=== PATIENT | male | born 1965 | race Caucasian/White ===

== ENCOUNTER 2020-07-01 12:43 | Emergency (ER) | payer SELFPAY ==
[2020-07-01] MEDS ORDERED: IBUPROFEN 600 MG TABLET. PO ONE (13:15)
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
[2020-07-01] MEDS ORDERED: ORPH-16 PO (13:48)
== END 2020-07-01 13:48 | disposition home or self-care (01) ==
LOC: ER 12:43
DX: S66.811A Strain of other specified muscles, fascia and tendons at wrist and hand level, right hand, initial encounter (principal); S39.012A Strain of muscle, fascia and tendon of lower back, initial encounter; M25.561 Pain in right knee; R51.9 Headache, unspecified; M54.6 Pain in thoracic spine; V43.62XA Car passenger injured in collision with other type car in traffic accident, initial encounter; Y93.89 Activity, other specified; Y92.488 Other paved roadways as the place of occurrence of the external cause; Y99.8 Other external cause status
CPT/HCPCS: 73130; 99283